=== PATIENT | female | born 1995 | race Caucasian/White ===

== ENCOUNTER 2018-08-19 14:13 | Day surgery (SDC) | payer OTHER ==
[~2018-08-19] VITALS: Ht 149.9 cm; Wt 49.7 kg
[2018-08-19 14:44] VITALS: BP 117/73; PULSE 73; TEMP 99.2
[2018-08-19] MEDS ORDERED: CARAFATE 1GM1 G PO (14:57)
[2018-08-19] MEDS ORDERED: ZOFRAN 4MG T4 MG/TAB PO (14:58)
[2018-08-19] MEDS ORDERED: FLOVENT DI100 MCG/Ac IH (14:58)
[2018-08-19] MEDS ORDERED: ALBUTEROL S0.4 MG/ML PO (14:59)
[2018-08-19] MEDS ORDERED: DEXILANT30 MG PO ×2 (14:59)
[2018-08-19] MEDS ORDERED: MICROGESTIN 1.51 TAB PO (15:00)
[2018-08-19 16:30] VITALS: BP 95/70; PULSE 81; TEMP 98.7
[2018-08-19 16:45] VITALS: BP 110/84; PULSE 85
[2018-08-19 17:00] VITALS: BP 112/75; PULSE 74
== END 2018-08-19 17:15 | disposition home or self-care (01) ==
LOC: SDCO 14:13
DX: K21.0 Gastro-esophageal reflux disease with esophagitis (principal); Z79.899 Other long term (current) drug therapy
CPT/HCPCS: J2250; J3010; J7030

== ENCOUNTER → 2018-09-02 | Outpatient (CLI) | payer OTHER ==
[~2018-09-02] MED LIST: ALBUTEROL S0.4 MG/ML PO; CARAFATE 1GM1 G PO; DEXILANT30 MG PO; FLOVENT DI100 MCG/Ac IH; MICROGESTIN 1.51 TAB PO; ZOFRAN 4MG T4 MG/TAB PO
== END ==
LOC: COL.RAD 11:14
DX: R10.13 Epigastric pain (principal); R12 Heartburn; R11.2 Nausea with vomiting, unspecified